=== PATIENT | female | born 1955 | race Caucasian/White ===

== ENCOUNTER 2020-02-19 21:35 | Inpatient (IN) | payer OTHER, MEDICAID ==
[~2020-02-19] VITALS: Ht 160 cm; Wt 78.8 kg
--- NOTE | ~2020-02-19 | CON ---
[address] [address] CONSULTATION Name: ALAN ISLAS Room: [address] IN M.R.#: [id number] Admission: 02/19/20 Attend Phys: Harris Mayfield, Discharge: Date of : 57 Report #: [id number] THIS REPORT FOR: //name// cc: Mihir Cai Michael G DO ~ THIS REPORT FOR: //name// CC: Mihir Mayfield DATE OF SERVICE: 02/20/2020 REQUESTING PHYSICIAN: Consult has been requested by Dr. Mayfield. INDICATION FOR CONSULTATION: Respiratory failure. HISTORY OF PRESENT ILLNESS: A 64-year-old female, past medical history is as mentioned below. She is here after an overdose with alcohol as well as Xanax. She does suffer from depression and has tried to kill herself in the past. The patient at times has had a high respiratory rate. The patient currently is sleeping and is comfortable on room air. I was able to arouse her. She did wake up and then go back to sleep. The patient is hemodynamically stable. The patient did not have any other complaints at this time. PAST MEDICAL HISTORY: Hepatitis C; cirrhosis; bipolar disorder; gastroesophageal reflux disease; ovarian surgery in 1990; multiple other surgeries on the female genital tract; gallbladder surgery; osteoporosis; pelvic, sacral and rib fractures; oophorectomy. SOCIAL HISTORY: The patient is reported to have a history of smoking, alcohol as well as substance abuse. I do not have details available at this time. ALLERGIES: IODINATED CONTRAST, NSAIDS, GABAPENTIN, CODEINE, AND TYLENOL ARE MENTIONED ALLERGIES. It is not known to me as to whether the patient in fact is allergic to all of these medications. PHYSICAL EXAMINATION: GENERAL: She was drowsy, fully arousable. VITAL SIGNS: Has a pulse of 73 and a blood pressure of 139/64. Her respiratory rate was 20-22 at the time of my examination. She has had a previous respiratory rate in the high 20s up to 29. She is saturating 94%. She is not on supplemental oxygen. She does have a low-grade fever at 37.7. HEENT: Head is normocephalic and atraumatic. NECK: Does not show raised JVP. CHEST: Clear to auscultation. HEART: Regular. [place] [address] CONSULTATION Name: ALAN ISLAS Room: [address]#: [id number] Admission: 02/19/20 Attend Phys: Harris Mayfield, Discharge: Date of : 57 Report #: [id number] ABDOMEN: Soft and nontender. EXTREMITIES: Lower extremities show no edema and no calf tenderness. LABORATORY DATA: The patient's lab work is in [facility] and is reviewed. Arterial blood gas, which does show hypoxemia on 2 liters nasal cannula, last night in [facility] reviewed. ASSESSMENT/PLAN: 1. Acute respiratory failure secondary to drug overdosage. Recommend continuing to monitor in the ICU. The patient is currently maintaining O2 saturation on room air. I would recommend obtaining a chest x-ray. 2. Drug overdosage/alcohol abuse. See discussion above. 3. Chronic obstructive pulmonary disease. It appears to me that the patient has previously undiagnosed chronic obstructive pulmonary disease. For now, I ordered p.r.n. DuoNeb. We will follow and add additional therapies as indicated. 4. Deep vein thrombosis prophylaxis. She is on Lovenox. Thanks for this consultation. By: [id number] Hoover MD /gary
[~2020-02-19 21:35] MED LIST: ALPRAZOLAM; AMOXICILLIN 50500 M1 PO; B12INJ IM; BENEFIBER; CALCIUM 600 +1 EAC1 PO; CALCIUM 600 +1 EAC5 PO; CARISOPRODOL; CELEXA20 MG PO; CHANTIX1 MG PO; CLONAZEPAM 1 MG1 M1 PO; CODEINE PO; COMBIVENT RESPIM4 GM; CYMBALTA; DEPAKOTE 250MG250 MG PO; DETROL LA4 MG PO; DICLOFENAC SOD50 M1 PO; FISH OIL 1,0001 EAC5 PO; FLONASE; FLOVENT HFA 1110 MCG; FOLIC ACID1 MG; FOSAMAX 70 MG T70 M1 PO; GEODON80 MG PO; K-DUR 20 MEQ T20 MEQ PO; KLONOPIN PO; KRILL OIL 5001 EACH PO; LEVAQUIN 500 M500 M2 PO; METHOCARBAMOL500 M2 PO; MUCINEX600 MG PO; NEURONTIN 400400 M1 PO; NEXIUM40 MG PO; NICOTINE TRANSD21 M1 TD; NORFLEX100 MG PO; OXYCODONE HCL5 M1 PO; PERCOCET 10-321 EACH PO; PERCOCET 5-3251 EACH PO; PREDNISONE 20 M20 M1 PO; PREMARIN VAGI42.5 G1; RELAFEN500 MG PO; REMERON 30 MG T30 M1 PO; REMERON 30 MG T30 MG PO; REMERON30 MG PO; REQUIP 0.25 M0.25 MG PO; RISPERDAL2 MG PO; ROXICODONE15 M1 PO; SEROQUEL; SEROQUEL XR 30300 M1 PO; TIROSINT50 MCG PO; TRAZODONE HCL100 MG PO; TRILEPTAL300 MG PO; VALIUM10 MG PO; VITAMIN B12 5500 MC1 IM; VITAMIN D3400 UNIT PO; ZALEPLON 10 MG10 M1 PO; ZANAFLEX2 M1 PO; ZONEGRAN100 MG PO; ZYPREXA ZYDIS10 MG PO; [UNRECOGNIZED DRUG - OTHER] PO
[2020-02-19 21:48] VITALS: BP 102/60
[2020-02-19 22:08] LABS: ABSOLUTE BASOPHILS 0.1 thou/uL (0.0-0.2); ABSOLUTE EOSINOPHILS 0.1 thou/uL (0.0-0.7); ABSOLUTE LYMPHOCYTES 1.9 thou/uL (0.8-5.3); ABSOLUTE MONOCYTES 0.3 thou/uL (0.0-1.2); BASOPHILS 1.1 %; EOSINOPHILS 1.8 %; HEMATOCRIT 40.8 % (37.0-47.0); HEMOGLOBIN 13.9 gm/dL (12.0-15.0); LYMPHOCYTES 36.1 %; MONOCYTES 5.2 %; MPV 7.1 fl. (7.2-11.1); NUCLEATED RBCS 0 /100WBC; PLATELET COUNT* 190 thou/uL (150-400); POLYS 55.8 %; RBC 4.34 mil/uL (4.20-5.00); RDW-CV 12.9 % (10.5-14.5); WBC 5.4 thou/uL (4.0-11.0)
[2020-02-19 22:15] LABS: CALCIUM 8.4 mg/dL (8.5-10.1); CREATININE 0.8 mg/dL (0.6-1.3); POTASSIUM 3.2 mmol/L (3.5-5.1)
[2020-02-19 22:20] LABS: ALBUMIN 3.7 g/dL (3.4-5.0); TOTAL BILIRUBIN 0.3 mg/dL (<0.1-1.0); TOTAL PROTEIN 6.7 g/dL (6.4-8.2)
[2020-02-19 22:36] LABS: ACETAMINOPHEN < 2 ug/mL (10-30); ALCOHOL 28 mg/dL (<10); SALICYLATE 3.1 mg/dL (2.8-20.0)
[2020-02-19 23:02] LABS: URINE BILIRUBIN NEGATIVE (Negative); URINE BLOOD NEGATIVE (Negative); URINE CLARITY CLEAR; URINE COLOR YELLOW; URINE GLUCOSE-RANDOM NEGATIVE (Negative); URINE KETONES NEGATIVE (Negative); URINE LEUKOCYTES-REFLEX NEGATIVE (Negative); URINE NITRITE-REFLEX NEGATIVE (Negative); URINE PROTEIN NEGATIVE (Negative); URINE SPECIFIC GRAVITY <= 1.005 (1.005-1.030); URINE UROBILINOGEN 0.2 E.U./dl (0.2-1.0)
[2020-02-19 23:06] LABS: AMP/METHAMP POSITIVE (Negative); BARBITURATES Negative (Negative); BENZODIAZEPINES POSITIVE (Negative); COCAINE Negative (Negative); METHADONE Negative (Negative); OPIATES Negative (Negative); PCP Negative (Negative); THC POSITIVE (Negative)
[2020-02-19 23:44] LABS: BE -2.9 mmol/L (-2 to +3); PCO2 37.5 mmHg (35.0-45.0); PO2 64.5 mmHg (75.0-100.0); pH 7.381 (7.340-7.450)
[2020-02-20] VITALS (24 sets, daily range): BP systolic 102–173; BP diastolic 48–75
[2020-02-20] MEDS ORDERED: LATUDA120 MG PO (10:04)
[2020-02-20] MEDS ORDERED: XANAX 0.5 MG0.5 M1 PO (10:05)
[2020-02-20] MEDS ORDERED: oxycodone PO (10:07)
[2020-02-20] MEDS ORDERED: LUVOX 50MG TABL50 M1 PO ×2 (10:09→10:10)
--- NOTE | 2020-02-20 11:38 | EKG ---
[place] [address] ELECTROCARDIOGRAM REPORT Name: ALAN ISLAS Room: [address] ADM IN M.R.#: [id number] Admission: 02/19/20 Attend Phys: Harris Mason Discharge: Date of : 57 Date of Service: 02/19/20 215 Report #: [id number] THIS REPORT FOR: //name// [facility] ED Test Date: 2020-02-19 Test Time: 21:53:48 Pat Name: ALAN ISLAS Department: Room: [facility] Gender: F Exit Booth Agent: SANDI : 1955 Requested By: Sierra Hand Order Number: [id number] MD: Mihir Jennings Measurements Intervals [place] Rate: 90 P: -10 [place]: 253 QRS: -37 QRSD: 147 T: 142 QT: 393 QTc: 481 Interpretive Statements Sinus rhythm Atrially sensed ventricularly paced rhythm no further analysis attempted due to paced rhythm Compared to ECG 08/28/2016 16:51:40 T-wave abnormality no longer present Electronically Signed On 02-20-2020 11:38:16 CDT by Mihir Jennings [email or web address] <ELECTRONICALLY SIGNED> By: Mihir Jennings MD, FACC 02/20/20 1138 52 52 Mihir Jennings MD, FACC /EPI
[2020-02-20 15:28] LABS: INR 1.1
[2020-02-21] VITALS (16 sets, daily range): BP systolic 109–195; BP diastolic 44–87
[2020-02-21 04:32] LABS: ABSOLUTE BASOPHILS 0.1 thou/uL (0.0-0.2); ABSOLUTE LYMPHOCYTES 1.7 thou/uL (0.8-5.3); ABSOLUTE MONOCYTES 0.4 thou/uL (0.0-1.2); ABSOLUTE NEUTROPHILS 4.7 thou/uL (1.6-8.1); BASOPHILS 1.2 %; EOSINOPHILS 0.6 %; HEMATOCRIT 38.4 % (37.0-47.0); LYMPHOCYTES 25.1 %; MCH 31.6 pg (26.0-34.0); MCHC 33.9 g/dL (28.0-37.0); MCV 93.1 fL (80.0-100.0); MONOCYTES 5.5 %; MPV 7.2 fl. (7.2-11.1); NUCLEATED RBCS 0 /100WBC; PLATELET COUNT* 194 thou/uL (150-400); POLYS 67.6 %; RBC 4.12 mil/uL (4.20-5.00); RDW-CV 13.2 % (10.5-14.5); WBC 6.9 thou/uL (4.0-11.0)
[2020-02-21 05:00] LABS: CREATININE 0.8 mg/dL (0.6-1.3); MAGNESIUM 1.8 mg/dL (1.8-2.4); POTASSIUM 3.7 mmol/L (3.5-5.1); TOTAL BILIRUBIN 0.3 mg/dL (<0.1-1.0); TOTAL PROTEIN 5.6 g/dL (6.4-8.2)
--- NOTE | 2020-02-21 16:59 | 2DMMODE ---
[place] [address] 2 D/M-MODE ECHOCARDIOGRAM Name: ROSHANALAN Enrrique Room: 006[facility] IN .R.#: [id number] Admission: 02/19/20 Attend Phys: Harris Mason Discharge: Date of : 57 Date of Service: 02/21/20 1658 Report #: [id number] THIS REPORT FOR: cc: Mihir Cai,Mihir Arboleda,Immanuel Lo MD [facility] ~ APPROVED REPORT Study performed: 02/21/2020 16:00:01 EXAM: Comprehensive 2D, Doppler, and color-flow Echocardiogram Patient Location: In-Patient Room #: 006 Status: routine BSA: 1.80 HR: 71 bpm BP: 128/65 mmHg Rhythm: NSR Other Information Study Quality: Good Indications Congestive Heart Failure 2D Dimensions IVSd: 11.08 (7-11mm) LVOT Diam: 20.78 (18-24mm) LVDd: 47.65 mm PWd: 10.54 (7-11mm) Ascending Ao: 27.09 (22-36mm) LVDs: 22.82 (25-40mm) Aortic Root: 30.86 mm Volumes Left Atrial Volume (Systole) LA ESV Index: 21.80 mL/m2 Aortic Valve AoV Peak Yobani.: 1.49 m/s AO Peak Gr.: 8.82 mmHg LVOT Max P.36 mmHg AO Mean Gr.: 4.75 mmHg LVOT Mean P.26 mmHg LVOT Max V: 1.04 m/s AO V2 VTI: 26.31 cm LVOT Mean V: 0.70 m/s ANDREAS (VTI): 2.57 cm2 LVOT V1 VTI: 19.98 [place] [address] 2 D/M-MODE ECHOCARDIOGRAM Name: ALAN ISLAS Room: [address] IN ..#: [id number] Admission: 02/19/20 Attend Phys: Harris Mason Discharge: Date of : 57 Date of Service: 02/21/20 1658 Report #: [id number] Mitral Valve E/A Ratio: 1.01 MV Decel. Time: 227.91 ms MV E Max Yobani.: 0.56 m/s MV PHT: 66.09 ms MVA (PHT): 3.33 cm2 TDI E/Lateral E': 4.67 E/Medial E': 4.67 Medial E' Yobani.: 0.12 m/s Lateral E' Yobani.: 0.12 m/s Pulmonary Valve PV Peak Yobani.: 1.16 m/s PV Peak Gr.: 5.42 mmHg Tricuspid Valve RAP Estimate: 5.00 mmHg TR Peak Gr.: 21.34 mmHg RVSP: 26.00 mmHg PA Pressure: 26.00 mmHg Left Ventricle The left ventricle is normal size. paradoxical septal motion consistent with a paced rhythm There is normal left ventricular wall thickness. Left ventricular systolic function is normal. The left ventricular ejection fraction is within the normal range. LVEF is 55-60%. The left ventricular diastolic function is normal. Right Ventricle The right ventricle is normal size. The right ventricular systolic function is normal. Pacemaker lead is present in the right ventricle. Atria The left atrium size is normal. The right atrium size is normal. Aortic Valve The aortic valve is normal in structure. No aortic regurgitation is present. There is no aortic valvular stenosis. Mitral Valve The mitral valve is normal in structure. There is no mitral valve regurgitation noted. No evidence of mitral valve stenosis. Tricuspid Valve The tricuspid valve is normal in structure. Mild tricuspid regurgitation. [place] [address] 2 D/M-MODE ECHOCARDIOGRAM Name: ALAN ISLAS Room: [address] IN ..#: [id number] Admission: 02/19/20 Attend Phys: Harris Mason Discharge: Date of : 57 Date of Service: 02/21/20 1658 Report #: [id number] Pulmonic Valve The pulmonary valve is normal in structure. There is no pulmonic valvular regurgitation. Great Vessels The aortic root is normal in size. IVC is normal in size and collapses >50% with inspiration. Pericardium There is no pericardial effusion. <Conclusion> LVEF is 55-60%. Pacemaker lead is present in the right ventricle. Mild tricuspid regurgitation. No pulmonary hypertension. <ELECTRONICALLY SIGNED> By: Immanuel Bello MD, [facility] 02/21/201657 57 57 Immanuel Bello MD, FACC /INF
[2020-02-22 00:25] VITALS: BP 144/74
[2020-02-22 04:44] VITALS: BP 131/62
[2020-02-22 04:58] LABS: HEMATOCRIT 40.6 % (37.0-47.0); HEMOGLOBIN 13.7 gm/dL (12.0-15.0); MCH 31.6 pg (26.0-34.0); MCHC 33.8 g/dL (28.0-37.0); MCV 93.6 fL (80.0-100.0); MPV 7.6 fl. (7.2-11.1); RBC 4.33 mil/uL (4.20-5.00); RDW-CV 13.2 % (10.5-14.5); WBC 5.3 thou/uL (4.0-11.0)
[2020-02-22 05:19] LABS: ALBUMIN 3.1 g/dL (3.4-5.0); CALCIUM 8.2 mg/dL (8.5-10.1); CREATININE 0.7 mg/dL (0.6-1.3); MAGNESIUM 1.7 mg/dL (1.8-2.4); POTASSIUM 3.5 mmol/L (3.5-5.1); TOTAL BILIRUBIN 0.3 mg/dL (<0.1-1.0); TOTAL PROTEIN 5.8 g/dL (6.4-8.2)
[2020-02-22 07:51] VITALS: BP 162/41
[2020-02-22 12:30] VITALS: BP 152/79
[2020-02-22 16:00] VITALS: BP 116/63
== END 2020-02-22 21:51 | DRG 917 ==
LOC: M.ERS 21:35 → M.ICU 23:42 → M.TBA-ER 23:42 → M.ICU 02-20 00:48 → M.2W 02-21 20:30
PROVIDERS: Emergency Medicine; Internal Medicine Critical Care Medicine; ADMIT Family Medicine; ATTEND Family Medicine
DX: T42.4X2A Poisoning by benzodiazepines, intentional self-harm, initial encounter (principal); G92 Toxic encephalopathy; J96.01 Acute respiratory failure with hypoxia; J81.1 Chronic pulmonary edema; F31.9 Bipolar disorder, unspecified; F25.9 Schizoaffective disorder, unspecified; F41.9 Anxiety disorder, unspecified; K21.9 Gastro-esophageal reflux disease without esophagitis; T51.92XA Toxic effect of unspecified alcohol, intentional self-harm, initial encounter; F15.10 Other stimulant abuse, uncomplicated; K70.30 Alcoholic cirrhosis of liver without ascites; Z20.828 Contact with and (suspected) exposure to other viral communicable diseases; J44.9 Chronic obstructive pulmonary disease, unspecified; F17.200 Nicotine dependence, unspecified, uncomplicated; F10.129 Alcohol abuse with intoxication, unspecified; M81.0 Age-related osteoporosis without current pathological fracture; F43.10 Post-traumatic stress disorder, unspecified; Z90.721 Acquired absence of ovaries, unilateral; Z98.51 Tubal ligation status; Z90.710 Acquired absence of both cervix and uterus; Z79.899 Other long term (current) drug therapy; Z88.8 Allergy status to other drugs, medicaments and biological substances; Y92.89 Other specified places as the place of occurrence of the external cause